=== PATIENT | female | born 1935 | race Caucasian/White ===

== ENCOUNTER 2018-08-07 09:30 | Emergency (ER) | payer MEDICARE, MEDICAID ==
[~2018-08-07] VITALS: Ht 162.6 cm; Wt 70.3 kg
[2018-08-07 09:30] VITALS: BP_SYST 144
[~2018-08-07 09:30] MED LIST: AMI200 PO; DIF100 PO; ESCI10TA PO; FERR-57 PO; FURO-150 PO; HYDR-4100 GT; LEVO100T PO; PHEN60TA11 PO; POTA20PA4 GT; PRO40 PO; SENN-153 GT; SIMV20TA2 PO; TEMA30CA5 PO; WARF1TAB2 PO; WARF2TAB2 PO
[2018-08-07 10:36] VITALS: BP_SYST 144
== END 2018-08-07 10:36 | disposition home or self-care (01) ==
LOC: SED 09:30
DX: Z43.1 Encounter for attention to gastrostomy (principal); I10 Essential (primary) hypertension; Z86.73 Personal history of transient ischemic attack (TIA), and cerebral infarction without residual deficits; Z79.899 Other long term (current) drug therapy
CPT/HCPCS: 99284

== ENCOUNTER 2018-08-26 16:55 | Emergency (ER) | payer MEDICARE, MEDICAID ==
[~2018-08-26] VITALS: Ht 162.6 cm; Wt 70.3 kg
[2018-08-26 17:36] VITALS: BP_SYST 120
--- NOTE | 2018-08-26 17:40 | NUR ---
Patient to ER bed 07 for evaluation. Side rails up.
--- NOTE | 2018-08-26 17:43 | NUR ---
ER Dr. Macias at bedside examining patient.
--- NOTE | 2018-08-26 17:50 | NUR ---
Pt [id number] presents to ED c/o 08/23 pain to L knee and ankle s/p assisted mechanical trip and fall prior to arrival. Pain increases with movement. No other injuries/complaints per pt/noted. Will continue to monitor.
--- NOTE | 2018-08-26 18:18 | NUR ---
Radiology at bedside
--- NOTE | 2018-08-26 19:13 | NUR ---
Patient given written and verbal discharge instructions and verbalizes understanding. ER MD Macias discussed with patient the results and treatment provided. Patient in stable condition. ID arm band removed. No Rx given. Patient educated on pain management and to follow up with PMD. Pain Scale 0. Opportunity for questions provided and answered. Medication side effect fact sheet provided.
[2018-08-26 19:14] VITALS: BP_SYST 127
== END 2018-08-26 19:14 | disposition home or self-care (01) ==
LOC: SED 16:55
DX: S93.402A Sprain of unspecified ligament of left ankle, initial encounter (principal); S83.92XA Sprain of unspecified site of left knee, initial encounter; R03.0 Elevated blood-pressure reading, without diagnosis of hypertension; I10 Essential (primary) hypertension; Z86.79 Personal history of other diseases of the circulatory system; Z79.899 Other long term (current) drug therapy; W01.0XXA Fall on same level from slipping, tripping and stumbling without subsequent striking against object, initial encounter; Y93.89 Activity, other specified; Y92.89 Other specified places as the place of occurrence of the external cause; Y99.8 Other external cause status
CPT/HCPCS: 73560-TC; 99283

== ENCOUNTER 2020-06-01 08:02 | Day surgery (SDC) | payer MEDICARE, MEDICAID, SELFPAY ==
[~2020-06-01] VITALS: Ht 162.6 cm; Wt 77.1 kg
[~2020-06-01 08:02] MED LIST changes: -AMI200 PO; +AMIO200T66 PO; +HYDR-3927 GT; -HYDR-4100 GT
[2020-06-01 10:03] VITALS: BP_SYST 128
== END 2020-06-01 09:20 | disposition home or self-care (01) ==
LOC: SMU 08:02 → SDS 08:02
PROVIDERS: ATTEND Internal Medicine Gastroenterology
DX: K94.23 Gastrostomy malfunction (principal)
CPT/HCPCS: 36415; 43760

== ENCOUNTER 2021-07-23 09:36 | Emergency (ER) | payer MEDICARE, MEDICAID ==
[~2021-07-23] VITALS: Ht 160 cm; Wt 77.1 kg
[2021-07-23 09:50] VITALS: BP_SYST 114
--- NOTE | 2021-07-23 09:54 | NUR ---
Pt present to ED accompanied by daughter with complaint of G-tube complications. hx of previous CVA with R sided deficits. Pt aphasic. Pt assisted into bed 7 by EDT. VS stable. pending ED physician assessment.
--- NOTE | 2021-07-23 10:00 | NUR ---
ED physician at the bedside assessing pt
--- NOTE | 2021-07-23 10:04 | NUR ---
G-tube changed by ED physician at the bedside.
[2021-07-23] MEDS ORDERED: DIATR MEGLU/DIATRIZ SOD 30 ML SOLUTION PO ONE (10:31)
--- NOTE | 2021-07-23 11:03 | NUR ---
Ginae abd XR done by XR tech to verify placement of G-tube
[2021-07-23 12:03] VITALS: BP_SYST 99
--- NOTE | 2021-07-23 12:04 | NUR ---
Patient given written and verbal discharge instructions and verbalizes understanding. ER MD discussed with patient the results and treatment provided. Patient in stable condition. ID arm band removed. Patient educated on pain management and to follow up with PMD. Pain Scale [0/10]. Opportunity for questions provided and answered. Medication side effect fact sheet provided. Pt D/C in no acute distress, no deviation in mentation from previous documentation.
== END 2021-07-23 12:03 | disposition home or self-care (01) ==
LOC: SED 09:36
DX: K94.23 Gastrostomy malfunction (principal); I10 Essential (primary) hypertension; R56.9 Unspecified convulsions
CPT/HCPCS: 43762; 74240; 99284; Q9964